=== PATIENT | male | born 1975 | race Caucasian/White ===

== ENCOUNTER → 2021-09-22 | Outpatient (CLI) | payer OTHER ==
[~2021-09-22] MED LIST: ZOFRAN ODT 4 MG4 MG PO
== END ==
LOC: MRI 12:52 → ECHO 13:00 → MRI 13:00
DX: I63.9 Cerebral infarction, unspecified (principal); R93.1 Abnormal findings on diagnostic imaging of heart and coronary circulation
CPT/HCPCS: ECHO; 70551; 93306